=== PATIENT | female | born 1985 ===

== ENCOUNTER 2017-11-22 15:30 | Inpatient (IN) | payer OTHER ==
[~2017-11-22] VITALS: Ht 157.5 cm; Wt 81.6 kg
[2017-12-15] MEDS ORDERED: IRON325 MG PO (08:07)
[2017-12-15] MEDS ORDERED: PRENATAL FORMU1 EAC1 PO (08:07)
== END 2017-12-17 15:45 | DRG 775 ==
LOC: LDR 12-15 06:28 → OB/GYN 12-15 20:37
PROC: 10E0XZZ Delivery of Products of Conception, External Approach (ICD-10-PCS; principal; 2017-12-15)
PROC: 0KQM0ZZ Repair Perineum Muscle, Open Approach (ICD-10-PCS; 2017-12-15)
PROC: 10907ZC Drainage of Amniotic Fluid, Therapeutic from Products of Conception, Via Natural or Artificial Opening (ICD-10-PCS; 2017-12-15)
PROC: 3E033VJ Introduction of Other Hormone into Peripheral Vein, Percutaneous Approach (ICD-10-PCS; 2017-12-15)
PROC: 4A1HXCZ Monitoring of Products of Conception, Cardiac Rate, External Approach (ICD-10-PCS; 2017-12-15)
DX: O70.1 Second degree perineal laceration during delivery (principal); Z37.0 Single live birth; Z3A.39 39 weeks gestation of pregnancy

== ENCOUNTER 2018-01-04 10:52 | Outpatient (CLI) | payer OTHER ==
[~2018-01-04 10:52] MED LIST: IRON325 MG PO; PRENATAL FORMU1 EAC1 PO
== END 2018-01-04 10:56 | disposition home or self-care (01) ==
LOC: LAB 10:52
DX: N30.00 Acute cystitis without hematuria (principal)